=== PATIENT | female | born 1975 | race Caucasian/White ===

== ENCOUNTER 2018-06-07 16:38 | Emergency (ER) | payer MEDICARE ==
[~2018-06-07] VITALS: Ht 160 cm; Wt 41.7 kg
[2018-06-07] MEDS ORDERED: DIATRIZOATE MEGL/DIATRIZOA SOD 30 ML BTL PO ONE (18:45)
== END 2018-06-07 19:40 | disposition home or self-care (01) ==
LOC: ER 16:38
DX: K94.13 Enterostomy malfunction (principal); Z85.43 Personal history of malignant neoplasm of ovary; Z87.19 Personal history of other diseases of the digestive system
CPT/HCPCS: 99284